=== PATIENT | female | born 1965 | race Caucasian/White ===

== ENCOUNTER 2017-07-13 00:51 | Inpatient (IN) | payer OTHER ==
[~2017-07-13] VITALS: Ht 167.6 cm; Wt 75.4 kg
[2017-07-13] VITALS (18 sets, daily range): BP systolic 110–156; BP diastolic 61–98; PULSE 63–112; RESP 14–21; TEMP 98.4–98.8; O2SAT 96–98
[~2017-07-13 00:51] MED LIST: IBUP400T20 PO
[2017-07-13] MEDS ORDERED: ATENOLOL 25 MG TAB PO ONE (02:30)
--- NOTE | 2017-07-13 02:40 | PD ---
HPI Chief Complaint: Chest Pain Time Seen by Provider: 01:48 Travel History International Travel<30 days: No Contact w/Intl Traveler<30days: No Traveled to known affect area: No History of Present Illness HPI pt comes to the ER b/c she feels her BP is very high and is causing CP with left arm radiation , pt takes atenolol daily, and lithium , Pt did not take anything for this pain and did not measure her BP . but feels it is high. 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 She states the pain started when she was walking and she describes it as a sharp pressure in the retrosternal area. She also had some associated left arm numbness. Had some mild shortness of breath and diaphoresis. No nausea. No provocative or palliative factors that she can identify. Patient has no cardiac history. EKG showed sinus rhythm, ST depression in the lateral rosado. PFSH Past Medical History ADHD: Yes Asthma: Yes Bipolar Disorder: Yes Diminished Hearing: No Hepatitis: Yes (C) Reproductive: Yes (ENDOMETRIOUS) Respiratory: Yes (BRONCHITIS LAST MONTH) ?: Not : 1 Miscarriage: 1 Ovarian Cysts: Yes (R/L) Past Surgical History Abdominal Surgery: Yes (ENDOMETREOSIS X2) Social History Alcohol Use: Yes (OCC) Tobacco Use: Yes (1PPD) Substance Use: No Allergies-Medications (Allergen,Severity, Reaction): Coded Allergies: aspirin (Unverified Allergy, Severe, CAN'T BREATH, 07/13/17) guaifenesin (Unverified Allergy, Severe, STOP BREATHING, 07/13/17) hydrocodone (Unverified Allergy, Severe, STOP BREATHING, 07/13/17) penicillin G (Unverified Allergy, Severe, RASH, 07/13/17) pseudoephedrine (Unverified Allergy, Severe, STOP BREATHING, 07/13/17) sulfamethoxazole (Unverified Allergy, Severe, KIDNEY PROBLEMS, 07/13/17) trimethoprim (Unverified Allergy, Severe, KIDNEY PROBLEMS, 07/13/17) Reported Meds & Prescriptions Reported Meds & Active Scripts Active Motrin (Ibuprofen) 400 Mg Tab 400 Mg PO Q8HPRN FOR PAIN Review of Systems Except as stated in HPI: all other systems reviewed are Neg Cardiovascular: Positive: Chest Pain or Discomfort (left arm numbness) Physical Exam Narrative GENERAL: no acute distress SKIN: Warm and dry. HEAD: Atraumatic. Normocephalic. EYES: Pupils equal and round. No scleral icterus. No injection or drainage. ENT: No nasal bleeding or discharge. Mucous membranes pink and moist. NECK: Trachea midline. No JVD. CARDIOVASCULAR: Regular rate and rhythm. RESPIRATORY: No accessory muscle use. Clear to auscultation. Breath sounds equal bilaterally. GASTROINTESTINAL: Abdomen soft, non-tender, nondistended. Hepatic and splenic margins not palpable. MUSCULOSKELETAL: Extremities without clubbing, cyanosis, or edema. No obvious deformities. NEUROLOGICAL: Awake and alert. No obvious cranial nerve deficits. Motor grossly within normal limits. Five out of 5 muscle strength in the arms and legs. Normal speech. PSYCHIATRIC: Appropriate mood and affect; insight and judgment normal. Data Data Last Documented VS Vital Signs Date Time Temp Pulse Resp B/P (MAP) Pulse Ox O2 Delivery O2 Flow Rate FiO2 07/13/17 07:16 72 14 132/61 (84) 97 Room Air 07/13/17 00:54 98.7 Orders Orders Complete Blood Count With Diff (07/13/17 02:19) Comprehensive Metabolic Panel (07/13/17 02:19) Troponin I (07/13/17 02:19) Lipase (07/13/17 02:19) [place] (Li) (07/13/17 02:19) Atenolol (Tenormin) (07/13/17 02:30) Potassium Chloride (Kcl) (07/13/17 04:00) D5-1/2 Ns + Kcl 40 Meq Inj (D5-1/2 Ns + (07/13/17 04:00) Aspirin Chew (Aspirin Chew) (07/13/17 07:30) Basic Metabolic Panel (Bmp) (07/13/17 07:34) Ckmb (Isoenzyme) Profile (07/13/17 07:34) Complete Blood Count With Diff (07/13/17 07:34) Magnesium (Mg) (07/13/17 07:34) Prothrombin Time / Inr (Pt) (07/13/17 07:34) Act Partial Throm Time (Ptt) (07/13/17 07:34) Troponin I (07/13/17 07:34) Ecg Monitoring (07/13/17 07:34) Bilateral Bp Monitoring (07/13/17 07:34) Iv Access Insert/Monitor (07/13/17 07:34) Oximetry (07/13/17 07:34) Oxygen Administration (07/13/17 07:34) Sodium Chloride 0.9% Flush (Ns Flush) (07/13/17 07:45) Place In Observation (07/13/17 07:34) Activity Bed Rest With Brp (07/13/17 07:34) Vital Signs (Adult) Q4H (07/13/17 07:34) Cardiac Rhythm .As Directed (07/13/17 07:34) Notify Dr: Other .PRN (07/13/17 07:34) Notify Parameters (07/13/17 07:34) Resp Oxygen Nasal Cannula (07/13/17 ) Diet Heart Healthy (07/13/17 Breakfast) Ckmb (Isoenzyme) Profile (07/13/17 10:34) Troponin I (07/13/17 10:34) Electrocardiogram (07/13/17 07:34) ^ Obtain (07/13/17 07:34) Sodium Chloride 0.9% Flush (Ns Flush) (07/13/17 07:45) Acetaminophen (Tylenol) (07/13/17 07:45) Morphine Inj (Morphine Inj) (07/13/17 07:45) Famotidine (Pepcid) (07/13/17 09:00) Pantoprazole (Protonix) (07/13/17 09:00) Manufacturing Cost Estimator / Telemetry SALONI.Q8H (07/13/17 07:34) Electrocardiogram (07/13/17 01:42) Place In Observation (07/13/17 07:54) Activity Bed Rest With Brp (07/13/17 07:54) Vital Signs (Adult) Q4H (07/13/17 07:54) Cardiac Rhythm .As Directed (07/13/17 07:54) Notify Dr: Other .PRN (07/13/17 07:54) Notify Parameters (07/13/17 07:54) Resp Oxygen Nasal Cannula (07/13/17 ) ^ Obtain (07/13/17 07:54) Sodium Chloride 0.9% Flush (Ns Flush) (07/13/17 08:00) Sodium Chloride 0.9% Flush (Ns Flush) (07/13/17 09:00) Manufacturing Cost Estimator / Telemetry SALONI.Q8H (07/13/17 07:54) CKMB (07/13/17 07:50) CKMB% (07/13/17 07:50) CKMB (07/13/17 11:45) CKMB% (07/13/17 11:45) Labs Laboratory Tests Test 07/13/17 02:20 07/13/17 07:50 White Blood Count 9.8 TH/MM3 Red Blood Count 4.97 MIL/MM3 Hemoglobin 15.4 GM/DL Hematocrit 44.5 % Mean Corpuscular Volume 89.6 FL Mean Corpuscular Hemoglobin 31.1 PG Mean Corpuscular Hemoglobin Concent 34.7 % Red Cell Distribution Width 13.6 % Platelet Count 289 TH/MM3 Mean Platelet Volume 8.1 FL Neutrophils (%) (Auto) 77.8 % Lymphocytes (%) (Auto) 14.2 % Monocytes (%) (Auto) 6.9 % Eosinophils (%) (Auto) 0.3 % Basophils (%) (Auto) 0.8 % Neutrophils # (Auto) 7.6 TH/MM3 Lymphocytes # (Auto) 1.4 TH/MM3 Monocytes # (Auto) 0.7 TH/MM3 Eosinophils # (Auto) 0.0 TH/MM3 Basophils # (Auto) 0.1 TH/MM3 CBC Comment DIFF FINAL Differential Comment Blood Urea Nitrogen 9 MG/DL 10 MG/DL Creatinine 0.77 MG/DL 0.66 MG/DL Random Glucose 63 MG/DL 66 MG/DL Total Protein 8.4 GM/DL Albumin 4.2 GM/DL Calcium Level 9.1 MG/DL 8.1 MG/DL Alkaline Phosphatase 85 U/L Aspartate Amino Transf (AST/SGOT) 159 U/L Alanine Aminotransferase (ALT/SGPT) 103 U/L Total Bilirubin 0.9 MG/DL Sodium Level 136 MEQ/L 134 MEQ/L Potassium Level 2.8 MEQ/L 2.9 MEQ/L Chloride Level 94 MEQ/L 95 MEQ/L Carbon Dioxide Level 27.9 MEQ/L 28.2 MEQ/L Anion Gap 14 MEQ/L 11 MEQ/L Estimat Glomerular Filtration Rate 79 ML/MIN 94 ML/MIN Troponin I 0.04 NG/ML 0.24 NG/ML Lipase 138 U/L [place] Level MEQ/L Magnesium Level 1.8 MG/DL Total Creatine Kinase 278 U/L Creatine Kinase MB 5.4 NG/ML Creatine Kinase MB % 1.9 % Triglycerides Level 84 MG/DL Cholesterol Level 191 MG/DL LDL Cholesterol 80 MG/DL HDL Cholesterol 94.0 MG/DL Cholesterol/HDL Ratio 2.03 RATIO Thyroid Stimulating Hormone 3rd Gen 0.445 uIU/ML MDM Medical Decision Making Medical Screen Exam Complete: Yes Emergency Medical Condition: Yes Differential Diagnosis LA vs myocardial ischemia, vs GERD , vs PE vs costochondritis Narrative Course Pt chest pain left arm involved ...needs admit serial Trop and possible stress test first trop 0.04 Diagnosis Primary Impression: Chest pain Scripts Lorazepam (Ativan) 0.5 Mg Tab 0.5 MG PO Q8H Y for ANXIETY AND/OR AGITATION, #10 TAB 0 Refills Prov: Emiliana Mesa MD 07/14/17 Hydrochlorothiazide (Hydrochlorothiazide) 12.5 Mg Cap 12.5 MG PO DAILY for Blood Pressure Management, #30 CAP Prov: Emiliana Mesa MD 07/14/17 Nitroglycerin SL (Nitrostat SL) 0.4 Mg Subl 0.4 MG SL Q5M Y for CHEST PAIN, #30 MG Prov: Emiliana Mesa MD 07/14/17 Isosorbide Mononitrate ER (Isosorbide Mononitrate ER) 30 Mg Mike 30 MG PO DAILY@07 for Blood Pressure Management, #30 TAB Prov: Emiliana Mesa MD 07/14/17 Clopidogrel (Plavix) 75 Mg Tab 75 MG PO DAILY for Blood Clot Prevention, #30 TAB Prov: Emiliana Mesa MD 07/14/17 Metoprolol Tartrate (Metoprolol Tartrate) 25 Mg Tab 12.5 MG PO BID for Blood Pressure Management, #60 TAB Prov: Emiliana Mesa MD 07/14/17 Jeancarlos Elizondo MD Jul 13, 2017 02:40
[2017-07-13 02:47] LABS: AUTOMATED NEUTROPHIL # 7.6 TH/MM3 (1.8-7.7); BASOPHIL # 0.1 TH/MM3 (0-0.2); BASOPHIL % 0.8 % (0.0-2.0); EOSINOPHIL % 0.3 % (0.0-4.0); HEMATOCRIT 44.5 % (35.0-46.0); HEMO FLAGS DIFF FINAL; LYMPH % 14.2 % (9.0-44.0); LYMPHOCYTE # 1.4 TH/MM3 (1.0-4.8); MEAN CELL VOLUME 89.6 FL (80.0-100.0); MEAN CORPUSCULAR HEMOGLOBIN 31.1 PG (27.0-34.0); MEAN CORPUSCULAR HGB CONC 34.7 % (32.0-36.0); MONO % 6.9 % (0.0-8.0); NEUT % 77.8 % (16.0-70.0); PLATELET COUNT 289 TH/MM3 (150-450); RED BLOOD COUNT 4.97 MIL/MM3 (4.00-5.30); RED CELL DISTRIBUTION WIDTH 13.6 % (11.6-17.2); WHITE BLOOD COUNT 9.8 TH/MM3 (4.0-11.0)
[2017-07-13 03:42] LABS: ALKALINE PHOSPHATASE 85 U/L (45-117); ALT (GPT) 103 U/L (10-53); ANION GAP 14 MEQ/L (5-15); AST (GOT) 159 U/L (15-37); BICARBONATE 27.9 MEQ/L (21.0-32.0); BLOOD UREA NITROGEN 9 MG/DL (7-18); CHLORIDE 94 MEQ/L (98-107); GLOMERULAR FILTRATION RATE 79 ML/MIN (>89); SODIUM (NA) 136 MEQ/L (136-145); TOTAL BILIRUBIN ADULT 0.9 MG/DL (0.2-1.0)
[2017-07-13 03:43] LABS: POTASSIUM 2.8 MEQ/L (3.5-5.1)
[2017-07-13] MEDS: D5-1/2 NS + KCL 40 MEQ INJ 1,000 ML IV SCH ×3 (04:00→19:43)
[2017-07-13] MEDS ORDERED: POTASSIUM CHLORIDE 20 MEQ CONTROLLED RELEASE TAB PO ONE (04:00)
[2017-07-13] MEDS ORDERED: ASPIRIN 81 MG CHEW TAB CHEW ONE (07:30)
[2017-07-13] MEDS ORDERED: MORPHINE SULFATE 4 MG/ML INJ IV PUSH PRN (07:45)
[2017-07-13] MEDS ORDERED: SODIUM CHLORIDE 0.9% FLUSH 10 ML FLUSH IV FLUSH PRN ×3 (07:45→11:15)
[2017-07-13] MEDS ORDERED: ACETAMINOPHEN 500 MG CPLT PO PRN (07:45)
[2017-07-13] MEDS ORDERED: SODIUM CHLORIDE 0.9% FLUSH 10 ML FLUSH IVF PRN (07:45)
[2017-07-13 08:36] LABS: BICARBONATE 28.2 MEQ/L (21.0-32.0); MAGNESIUM 1.8 MG/DL (1.5-2.5)
[2017-07-13 08:45] LABS: POTASSIUM 2.9 MEQ/L (3.5-5.1)
[2017-07-13] MEDS ORDERED: FAMOTIDINE 20 MG TAB PO SCH (09:00)
[2017-07-13] MEDS: SODIUM CHLORIDE 0.9% FLUSH 10 ML FLUSH IV FLUSH SCH ×2 (09:06→21:25)
[2017-07-13] MEDS: PANTOPRAZOLE SOD 40 MG DELAYED RELEASE TAB PO SCH (09:06)
[2017-07-13 09:12] LABS: CKMB 5.4 NG/ML (0.5-3.6)
[2017-07-13] MEDS ORDERED: POTASSIUM CHLORIDE 10 MEQ CONTROLLED RELEASE TAB PO ONE (11:15)
[2017-07-13] MEDS ORDERED: NITROGLYCERIN 0.4 MG SL 25 TABS/BTL SL PRN (11:15)
[2017-07-13] MEDS ORDERED: MORPHINE SULFATE 2 MG/ML INJ IV PUSH PRN (11:15)
[2017-07-13 12:03] LABS: AUTOMATED NEUTROPHIL # 3.1 TH/MM3 (1.8-7.7); BASOPHIL # 0.1 TH/MM3 (0-0.2); BASOPHIL % 1.3 % (0.0-2.0); EOSINOPHIL # 0.1 TH/MM3 (0-0.4); EOSINOPHIL % 1.4 % (0.0-4.0); HEMATOCRIT 38.4 % (35.0-46.0); HEMO FLAGS DIFF FINAL; LYMPH % 28.7 % (9.0-44.0); LYMPHOCYTE # 1.5 TH/MM3 (1.0-4.8); MEAN CELL VOLUME 88.8 FL (80.0-100.0); MEAN CORPUSCULAR HEMOGLOBIN 31.1 PG (27.0-34.0); MEAN CORPUSCULAR HGB CONC 35.1 % (32.0-36.0); MONO % 10.9 % (0.0-8.0); NEUT % 57.7 % (16.0-70.0); PLATELET COUNT 261 TH/MM3 (150-450); RED BLOOD COUNT 4.33 MIL/MM3 (4.00-5.30); RED CELL DISTRIBUTION WIDTH 13.9 % (11.6-17.2); WHITE BLOOD COUNT 5.3 TH/MM3 (4.0-11.0)
[2017-07-13 12:14] LABS: APTT (PATIENT) 25.3 SEC (24.3-30.1); PROTHROMBIN TIME - PATIENT 10.2 SEC (9.8-11.6)
[2017-07-13] MEDS ORDERED: PILL SPLITTER OTHER PRN (12:30)
[2017-07-13 12:42] LABS: CKMB 4.6 NG/ML (0.5-3.6)
--- NOTE | 2017-07-13 13:48 | HHI.HP ---
[facility]Staff Admission Diagnosis chest pain Diagnoses: (1) NSTEMI (non-ST elevated myocardial infarction) Travel History International Travel<30 Days: No Contact w/Intl Traveler <30 Da: No Traveled to Known Affected Are: No History of Present Illness This is a 51-year-old female with history of detention tobacco use, hepatitis C virus, alcohol withdrawal seizures who presented to the ER early this morning complaining of retrosternal chest pain. She states the pain started when she was walking and she describes it as a sharp pressure in the retrosternal area. She also had some associated left arm numbness. Had some mild shortness of breath and diaphoresis. No nausea. No provocative or palliative factors that she can identify. Patient has no cardiac history. EKG showed sinus rhythm, ST depression in the lateral rosado. Patient was initially placed in the chest pain Center however her troponin came back elevated and so I was called to admit the patient. Patient is here on vacation from [place]. She does endorse that she's been drinking rather heavily over the past 2 weeks. Denies any tremors. She does have a history of alcohol withdrawal seizures. 10 point review systems otherwise negative. Past Family Social History Past Medical History Migraines COPD/bronchitis Alcoholism Tobaccoism History of alcohol withdrawal seizures Osteoporosis/vitamin D deficiency Hepatitis C virus Bipolar disorder - she is supposed to be on lithium but is not gotten her prescription filled recently Past Surgical History No surgeries Reported Medications Allergies Coded Allergies Type Severity Reaction Last Updated Verified aspirin Allergy Severe CAN'T BREATH 07/13/17 No guaifenesin Allergy Severe STOP BREATHING 07/13/17 No hydrocodone Allergy Severe STOP BREATHING 07/13/17 No penicillin G Allergy Severe RASH 07/13/17 No pseudoephedrine Allergy Severe STOP BREATHING 07/13/17 No sulfamethoxazole Allergy Severe KIDNEY PROBLEMS 07/13/17 No trimethoprim Allergy Severe KIDNEY PROBLEMS 07/13/17 No Active Scripts Medications Dose Route/Sig Max Daily Dose Days Date Category Dose Instructions Motrin (Ibuprofen) 400 Mg Tab 400 Mg PO Q8HPRN 02/11/06 Rx FOR PAIN Allergies: Coded Allergies: aspirin (Unverified Allergy, Severe, CAN'T BREATH, 07/13/17) guaifenesin (Unverified Allergy, Severe, STOP BREATHING, 07/13/17) hydrocodone (Unverified Allergy, Severe, STOP BREATHING, 07/13/17) penicillin G (Unverified Allergy, Severe, RASH, 07/13/17) pseudoephedrine (Unverified Allergy, Severe, STOP BREATHING, 07/13/17) sulfamethoxazole (Unverified Allergy, Severe, KIDNEY PROBLEMS, 07/13/17) trimethoprim (Unverified Allergy, Severe, KIDNEY PROBLEMS, 07/13/17) Family History Positive for coronary artery disease and one maternal aunt Social History As per history of present illness Physical Exam Vital Signs Vital Signs Date Time Temp Pulse Resp B/P (MAP) Pulse Ox O2 Delivery O2 Flow Rate FiO2 07/13/17 11:38 79 21 156/96 (116) 97 Room Air 07/13/17 11:37 (84) Room Air 07/13/17 11:37 98 Room Air 07/13/17 07:16 72 14 132/61 (84) 97 Room Air 07/13/17 05:16 71 16 110/69 (83) 96 Room Air 07/13/17 03:19 81 07/13/17 00:54 98.7 112 16 138/98 (111) 98 Room Air Physical Exam GENERAL: This is a well-nourished, well-developed patient, in no apparent distress. Appears somewhat weathered. SKIN: No rashes, ecchymoses or lesions. Cool and dry. HEAD: Atraumatic. Normocephalic. EYES: Pupils equal round and reactive. Extraocular motions intact. No scleral icterus. No injection or drainage. NECK: Trachea midline. No JVD or lymphadenopathy. Supple, nontender, no meningeal signs. CARDIOVASCULAR: Regular rate and rhythm without murmurs, gallops, or rubs. RESPIRATORY: Clear to auscultation. Breath sounds equal bilaterally. No wheezes , rales, or rhonchi. GASTROINTESTINAL: Abdomen soft, non-tender, nondistended. No hepato-splenomegaly , or palpable masses. No guarding. MUSCULOSKELETAL: No pedal edema. NEUROLOGICAL: Awake and alert. Motor and sensory grossly within normal limits. Normal speech. Laboratory Laboratory Tests Test 12/7/17 02:20 07/13/17 07:50 07/13/17 11:45 White Blood Count 9.8 5.3 Red Blood Count 4.97 4.33 Hemoglobin 15.4 13.5 Hematocrit 44.5 38.4 Mean Corpuscular Volume 89.6 88.8 Mean Corpuscular Hemoglobin 31.1 31.1 Mean Corpuscular Hemoglobin Concent 34.7 35.1 Red Cell Distribution Width 13.6 13.9 Platelet Count 289 261 Mean Platelet Volume 8.1 7.6 Neutrophils (%) (Auto) 77.8 57.7 Lymphocytes (%) (Auto) 14.2 28.7 Monocytes (%) (Auto) 6.9 10.9 Eosinophils (%) (Auto) 0.3 1.4 Basophils (%) (Auto) 0.8 1.3 Neutrophils # (Auto) 7.6 3.1 Lymphocytes # (Auto) 1.4 1.5 Monocytes # (Auto) 0.7 0.6 Eosinophils # (Auto) 0.0 0.1 Basophils # (Auto) 0.1 0.1 CBC Comment DIFF FINAL DIFF FINAL Differential Comment Blood Urea Nitrogen 9 10 Creatinine 0.77 0.66 Random Glucose 63 66 Total Protein 8.4 Albumin 4.2 Calcium Level 9.1 8.1 Alkaline Phosphatase 85 Aspartate Amino Transf (AST/SGOT) 159 Alanine Aminotransferase (ALT/SGPT) 103 Total Bilirubin 0.9 Sodium Level 136 134 Potassium Level 2.8 2.9 Chloride Level 94 95 Carbon Dioxide Level 27.9 28.2 Anion Gap 14 11 Estimat Glomerular Filtration Rate 79 94 Troponin I 0.04 0.24 0.19 Lipase 138 [place] Level Magnesium Level 1.8 Total Creatine Kinase 278 273 Creatine Kinase MB 5.4 4.6 Creatine Kinase MB % 1.9 1.7 Prothrombin Time 10.2 Prothromb Time International Ratio 1.0 Activated Partial Thromboplast Time 25.3 Result Diagram: 07/13/17 1145 07/13/17 0750 Caprini VTE Risk Assessment Caprini VTE Risk Assessment: No/Low Risk (score <= 1) Caprini Risk Assessment Model Point Value = 1 Point Value = 2 Point Value = 3 Point Value = 5 Age 41-60 Minor surgery BMI > 25 kg/m2 Swollen legs Varicose veins or History of unexplained or recurrent spontaneous Oral contraceptives or hormone replacement Sepsis (< 1 month) Serious lung disease, including pneumonia (< 1 month) Abnormal pulmonary function Acute myocardial infarction Congestive heart failure (< 1 month) History of inflammatory bowel disease Medical patient at bed rest Age 61-74 Arthroscopic surgery Major open surgery (> 45 min) Laparoscopic surgery (> 45 min) Malignancy Confined to bed (> 72 hours) Immobilizing plaster cast Central venous access Age >= 75 History of VTE Family history of VTE Factor V Leiden Prothrombin [id number] Lupus anticoagulant Anticardiolipin antibodies Elevated serum homocysteine Heparin-induced thrombocytopenia Other congenital or acquired thrombophilia Stroke (< 1 month) Elective arthroplasty Hip, pelvis, or leg fracture Acute spinal cord injury (< 1 month) Prophylaxis Regimen Total Risk Factor Score Risk Level Prophylaxis Regimen 0-1 Low Early ambulation 2 Moderate Order ONE of the following: *Sequential Compression Device (SCD) *Heparin 5000 units SQ BID 3-4 Higher Order ONE of the following medications: *Heparin 5000 units SQ TID *Enoxaparin/Lovenox 40 mg SQ daily (WT < 150 kg, CrCl > 30 mL/min) *Enoxaparin/Lovenox 30 mg SQ daily (WT < 150 kg, CrCl > 10-29 mL/min) *Enoxaparin/Lovenox 30 mg SQ BID (WT < 150 kg, CrCl > 30 mL/min) AND/OR *Sequential Compression Device (SCD) 5 or more Highest Order ONE of the following medications: *Heparin 5000 units SQ TID (Preferred with Epidurals) *Enoxaparin/Lovenox 40 mg SQ daily (WT < 150 kg, CrCl > 30 mL/min) *Enoxaparin/Lovenox 30 mg SQ daily (WT < 150 kg, CrCl > 10-29 mL/min) *Enoxaparin/Lovenox 30 mg SQ BID (WT < 150 kg, CrCl > 30 mL/min) AND *Sequential Compression Device (SCD) Assessment and Plan Assessment and Plan NSTEMI - presented with chest pain. Troponin 0.24-0.19. Patient has aspirin allergy. Start patient on Plavix, statin, check lipid profile. Started on beta estrella. Cardiology consulted. Patient is thinking about whether or not she wants a heart catheter or not. Patient was counseled on tobacco cessation. Alcoholism. History of alcohol withdrawal seizures. We'll place patient on rally pack. Elevated LFTs. Likely due to alcohol and she also has history of hepatitis C virus. Hypokalemia. We'll replete and repeat BMP in the morning. DVT prophylaxis with SCDs. Sarah Owens MD Jul 13, 2017 13:48
[2017-07-13] MEDS ORDERED: LORazepam 2 MG/ML VIAL IV PUSH PRN ×3 (14:00)
[2017-07-13] MEDS ORDERED: FLUMAZENIL 0.5 MG/5 ML VIAL IV PUSH PRN (14:00)
[2017-07-13] MEDS ORDERED: LORazepam 1 MG TAB PO PRN (14:00)
[2017-07-13] MEDS ORDERED: LORazepam 2 MG TAB PO PRN (14:00)
--- NOTE | 2017-07-13 14:10 | MB ---
cc: NAVEEN LUNDY DATE OF CONSULTATION: 07/13/2017 1965 REASON FOR CONSULTATION Chest pain. HISTORY OF PRESENT ILLNESS 51-year-old female with past medical history significant for alcohol abuse, hepatitis C, asthma, seizures, endometriosis, hypertension, smoker, that presented to the hospital with complaints of chest pain and left hand numbness. She reports chest discomfort at rest that comes and goes, associated again with left arm pain. She denies palpitations, shortness of breath, syncope, nausea, vomiting, diarrhea or abdominal pain or leg edema. Cardiology has been consulted for further management and evaluation. She has been found to have minimally elevated troponins of 0.04, 0.24 and 0.19. EKG shows normal sinus rhythm, unremarkable for age. REVIEW OF SYSTEMS Review of systems negative except for what is mentioned in the HPI. PAST MEDICAL HISTORY 1. Alcohol abuse. 2. Hepatitis C. 3. Asthma. 4. Seizures. 5. Endometriosis. 6. Smoker. PAST SURGICAL HISTORY Endometriosis surgery. SOCIAL HISTORY Alcohol abuse, tobacco abuse. No illicit drug use. ALLERGIES ASPIRIN, GUAIFENESIN, HYDROCODONE, PENICILLIN G, PSEUDOEPHEDRINE, SULFAMETHOXAZOLE, TRIMETHOPRIM. FAMILY HISTORY Noncontributory. MEDICATION Home medications: Atenolol and lithium. PHYSICAL EXAMINATION VITAL SIGNS: Temperature 98, respiratory rate 16, heart rate 79, blood pressure 156/96, O2 sat 97% on room air. GENERAL: Alert, awake and oriented x3, in no acute distress. NECK: No JVD, no carotid bruits. HEART: Regular rate and rhythm. No murmurs, rubs or gallops. LUNGS: Clear to auscultation bilaterally. No wheezing. No rhonchi or rales. ABDOMEN: Benign, soft, nontender, nondistended with positive bowel sounds. EXTREMITIES: No cyanosis or edema and pulses throughout. DATA CBC hemoglobin 13, hematocrit 38, platelet count 261, INR 1. Chemistries sodium 134, potassium 2.9, chloride 95, BUN 10, creatinine 0.66, AST 159, ALT 103, troponin 0.04, 0.24 and 0.19. EKG Shows sinus rhythm. No acute ST changes. ASSESSMENT/PLAN 51-year-old female with cardiac risk factors that include smoking, hypertension and age, that presents to the emergency department with complaints of chest pressure with numbness to the left arm. EKG shows no significant acute ST changes and troponins minimally elevated with a value of 0.04. 0.24 and 0.19. The patient remains afebrile, hemodynamically stable and currently chest pain free. She reports that she has not been from the area and coming from [place]. She follows with a heavy equipment engine mechanic in [place] which prescribes to her, her blood pressure medications. Given presentation and risk factors concerning for ACS for which invasive cardiology workup will be recommended. However, the patient currently declines to have any cardiac workup. She reports she wants to wait until getting to [place] and see her heavy equipment engine mechanic. Risks and benefits of left heart cath/PCI have been thoroughly explained to the patient and the patient again refuses. Furthermore, pathophysiology treatment, prognosis of ACS have been explained and the patient declines to receive any invasive cardiac management. Thus at this time the recommendation will be to treat medically. The patient does have noted ALLERGY TO ASPIRIN. RECOMMENDATIONS Blood pressure control with Lopressor and optimize as tolerated by heart rate and blood pressure. Start HCTZ 25 mg p.o. daily. Continue and start Imdur 30 mg p.o. daily. Given increase in LFTs we are going to hold statins, get a 2-D echo as well as a chest x-ray, continue Plavix. Thank you for the opportunity to take part in the care of this patient. MD FOREST Moser/TLL /1:08 PM /1:34 PM LEWIS
[2017-07-13] MEDS ORDERED: LEVOTHYROXINE SODIUM 25 MCG TAB PO SCH (15:15)
--- NOTE | 2017-07-13 16:17 | ECHRPT ---
Indication: CONCLUSIONS Normal left ventricular size. Structurally normal mitral valve Mild mitral valve regurgitation. No aortic valve regurgitation. No aortic valve stenosis. There is mild tricuspid valve regurgitation. The estimated pulmonary arterial pressure is 41.6 mmHg. BP: / HR: Rhythm: MEASUREMENTS (Male / Female) Normal Values Technical Quality:Excellent 2D ECHO LV Diastolic Diameter PLAX 3.8 cm 4.2 - 5.9 / 3.9 - 5.3 cm LV Systolic Diameter PLAX 2.7 cm IVS Diastolic Thickness 1.2 cm 0.6 - 1.0 / 0.6 - 0.9 cm LVPW Diastolic Thickness 1.1 cm 0.6 - 1.0 / 0.6 - 0.9 cm LV Relative Wall Thickness 0.6 RV Internal Dim ED PLAX 2.6 cm M-MODE Aortic Root Diameter MM 2.7 cm LA Systolic Diameter MM 3.1 cm LA Ao Ratio MM 1.1 AV Cusp Separation MM 1.6 cm DOPPLER Mitral E Point Velocity 70.1 cm/s Mitral A Point Velocity 84.4 cm/s Mitral E to A Ratio 0.8 LV E' Lateral Velocity 8.4 cm/s Mitral E to LV E' Lateral Ratio 8.4 LV E' Septal Velocity 7.0 cm/s Mitral E to LV E' Septal Ratio 10.0 TR Peak Velocity 281.0 cm/s TR Peak Gradient 31.6 mmHg Right Atrial Pressure 10.0 mmHg Pulmonary Artery Systolic Pressu 41.6 mmHg Right Ventricular Systolic Press 41.6 mmHg FINDINGS LEFT VENTRICLE The left ventricular systolic function is normal with an estimated ejection fraction in the range of 60-65%. Normal left ventricular size. RIGHT VENTRICLE Normal right ventricular size and systolic function. LEFT ATRIUM The left atrial size is normal. RIGHT ATRIUM The right atrial size is normal. ATRIAL SEPTUM Normal atrial septal thickness without atrial level shunting by limited color doppler interrogation. AORTA The aortic root and proximal ascending aorta are normal in size on limited imaging. MITRAL VALVE Structurally normal mitral valve Mild mitral valve regurgitation. AORTIC VALVE Trileaflet aortic valve. No aortic valve regurgitation. No aortic valve stenosis. TRICUSPID VALVE Structurally normal tricuspid valve. There is mild tricuspid valve regurgitation. The estimated pulmonary arterial pressure is 41.6 mmHg. PULMONARY VALVE No pulmonary valve regurgitation or stenosis. VESSELS The inferior vena cava is normal in size. PERICARDIUM No pericardial effusion. Geovany Kemp MD (Electronically Signed) Final Date:13 July 2017 16:17
--- NOTE | 2017-07-13 17:04 | EKG ---
Date Performed: 07/13/2017 Time Performed: 07:56:14 PTAGE: 51 years EKG: Sinus rhythm PROLONGED QT INTERVAL ABNORMAL ECG PREVIOUS TRACING : 07/13/2017 01.42 DOCTOR: Sid Donahue Interpretating Date/Time 07/13/2017 17:03:01
--- NOTE | 2017-07-13 17:04 | EKG ---
Date Performed: 07/13/2017 Time Performed: 01:42:42 PTAGE: 51 years EKG: Sinus rhythm PROLONGED QT INTERVAL ABNORMAL ECG NO PREVIOUS TRACING DOCTOR: Sid Donahue Interpretating Date/Time 07/13/2017 17:02:41
[2017-07-13] MEDS ORDERED: SODIUM CHLORIDE 0.9% FLUSH 10 ML FLUSH IV FLUSH SCH (21:00)
[2017-07-13] MEDS: METOPROLOL TARTRATE 25 MG TAB PO SCH (21:23)
[2017-07-14] VITALS (15 sets, daily range): BP systolic 124–153; BP diastolic 88–99; PULSE 63–85; RESP 16–18; TEMP 97.7–98.6; O2SAT 96–98
[2017-07-14] MEDS: LORazepam 2 MG/ML VIAL IV PUSH PRN ×2 (00:13→04:17)
[2017-07-14] MEDS: D5-1/2 NS + KCL 40 MEQ INJ 1,000 ML IV SCH ×2 (04:00→12:00)
[2017-07-14] MEDS ORDERED: ISOSORBIDE MONONITRATE 30 MG TAB PO SCH (07:00)
[2017-07-14 07:50] LABS: BICARBONATE 27.3 MEQ/L (21.0-32.0); POTASSIUM 3.5 MEQ/L (3.5-5.1)
[2017-07-14] MEDS: METOPROLOL TARTRATE 25 MG TAB PO SCH (08:18)
[2017-07-14] MEDS: PANTOPRAZOLE SOD 40 MG DELAYED RELEASE TAB PO SCH (08:18)
[2017-07-14] MEDS: SODIUM CHLORIDE 0.9% FLUSH 10 ML FLUSH IV FLUSH SCH (08:18)
[2017-07-14] MEDS ORDERED: CLOPIDOGREL 75 MG TAB PO SCH (09:00)
[2017-07-14] MEDS ORDERED: HYDROCHLOROTHIAZIDE 12.5 MG CAP PO SCH (09:00)
[2017-07-14] MEDS ORDERED: PNEUMOCOCCAL POLYVALENT INJ 25 MCG/0.5 ML SYR IM ONE (10:00)
[2017-07-14] MEDS ORDERED: INFLUENZA VIRUS VACCINE (QUADRIVALENT) 0.5 ML SYR IM ONE (10:00)
--- NOTE | 2017-07-14 11:05 | HHI.PR ---
Subjective Remarks The patient is in bed appears in nad at this time. She is not having any chest pain at this time. Patien tis refusing cardiac cath. No fever or chills. No n/v /d/c. Objective Vitals Vital Signs Date Time Temp Pulse Resp B/P (MAP) Pulse Ox O2 Delivery O2 Flow Rate FiO2 07/14/17 10:01 70 07/14/17 09:00 64 07/14/17 08:15 98.2 80 18 124/89 (101) 96 07/14/17 08:00 68 07/14/17 07:01 85 07/14/17 06:00 68 07/14/17 05:00 64 07/14/17 04:00 70 07/14/17 04:00 97.7 77 16 144/92 (109) 97 07/14/17 03:00 74 07/14/17 02:00 72 07/14/17 01:00 72 07/14/17 00:00 76 07/14/17 00:00 97.9 69 16 153/99 (117) 97 07/13/17 23:00 68 07/13/17 22:00 68 07/13/17 21:00 64 07/13/17 20:55 98 07/13/17 20:00 98.4 68 16 154/98 (116) 97 07/13/17 20:00 63 07/13/17 19:00 68 07/13/17 18:13 71 07/13/17 17:47 98.8 79 16 139/93 (108) 97 07/13/17 17:41 83 07/13/17 16:00 78 07/13/17 15:00 75 07/13/17 14:00 76 07/13/17 13:37 98.7 78 16 138/95 (109) 97 07/13/17 11:38 79 21 156/96 (116) 97 Room Air 07/13/17 11:37 (84) Room Air 07/13/17 11:37 98 Room Air I/O 07/13/17 07/13/17 07/13/17 07/14/17 07/14/17 07/14/17 07:00 15:00 23:00 07:00 15:00 23:00 Intake Total 1987 ml 240 ml Output Total 400 ml 400 ml Balance 1587 ml -160 ml Intake Oral 960 ml 240 ml IV Total 1027 ml Output Urine Total 400 ml 400 ml Result Diagram: 07/13/17 1145 07/14/17 0624 Objective Remarks GENERAL: This is a well-nourished, well-developed patient, in no apparent distress. Appears somewhat weathered. CARDIOVASCULAR: Regular rate and rhythm without murmurs, gallops, or rubs. RESPIRATORY: Clear to auscultation. Breath sounds equal bilaterally. No wheezes , rales, or rhonchi. GASTROINTESTINAL: Abdomen soft, non-tender, nondistended. No hepato-splenomegaly , or palpable masses. No guarding. MUSCULOSKELETAL: No pedal edema. NEUROLOGICAL: Awake and alert. Motor and sensory grossly within normal limits. Normal speech. A/P Problem List: (1) NSTEMI (non-ST elevated myocardial infarction) ICD Code: I21.4 - Non-ST elevation (NSTEMI) myocardial infarction Assessment and Plan NSTEMI - presented with chest pain. Troponin 0.24-0.19. Patient has aspirin allergy. Start patient on Plavix, statin, check lipid profile. Started on beta estrella. Cardiology consulted. Patient was counseled on tobacco cessation. THE PATIENT IS REFUSING CARDIAC CATH. CONTINUE MEDICAL MANAGEMENT Alcoholism. History of alcohol withdrawal seizures. We'll place patient on rally pack. Elevated LFTs. Likely due to alcohol and she also has history of hepatitis C virus. Hypokalemia. We'll replete and repeat BMP in the morning. DVT prophylaxis with SCDs. DC plan: PATIENT IS REFUSING CARDIAC CATH. CONTINUE MEDICAL MANAGEMENT TO FOLLWO [facility] AND WITH CARDIOLOGY CASE MANAGEMENT CONSULTED FOR DC PLAN Discharge Planning DC home in stable condition to follow up as OP with PCP and consultants ' Diet healthy heart Meds per med reconciliations Activity ad tom as tolerated Emiliana Mesa MD Jul 14, 2017 11:05
[2017-07-14] MEDS ORDERED: ISOS30TA3 PO (12:27)
[2017-07-14] MEDS ORDERED: PLAV75TA29 PO (12:27)
[2017-07-14] MEDS ORDERED: HYDR12.57 PO (12:27)
[2017-07-14] MEDS ORDERED: NITR0.4S SL (12:27)
[2017-07-14] MEDS ORDERED: LORA-392 PO (12:27)
[2017-07-14] MEDS ORDERED: METO25TA3 PO (12:27)
--- NOTE | 2017-07-14 12:27 | HHI.DCPOC ---
Discharge Care Plan Goals to Promote Your Health * To prevent worsening of your condition and complications * To maintain your health at the optimal level Directions to Meet Your Goals Take your medications as prescribed Follow your dietary instruction Follow activity as directed Keep your appointments as scheduled Take your immunizations and boosters as scheduled If your symptoms worsen call your PCP, if no PCP go to Urgent Care Center or Emergency Room Smoking is Dangerous to Your Health. Avoid second hand smoke Call the 24-hour hour crisis hotline for domestic abuse at Emiliana Mesa MD Jul 14, 2017 12:27
== END 2017-07-14 15:55 | disposition home or self-care (01) | DRG 282 ==
LOC: NEPC 00:51 → NEDA 09:18 → OBSVTOIN 11:20 → HCIS 13:21
PROVIDERS: ADMIT Hospitalist; ATTEND Hospitalist
DX: I21.4 Non-ST elevation (NSTEMI) myocardial infarction (principal); I10 Essential (primary) hypertension; B19.20 Unspecified viral hepatitis C without hepatic coma; F10.20 Alcohol dependence, uncomplicated; E87.6 Hypokalemia; F31.9 Bipolar disorder, unspecified; J44.9 Chronic obstructive pulmonary disease, unspecified; M81.0 Age-related osteoporosis without current pathological fracture; F17.210 Nicotine dependence, cigarettes, uncomplicated; Z88.6 Allergy status to analgesic agent; Z23 Encounter for immunization
CPT/HCPCS: 76937; 80048; 80053; 80061; 80178; 82550; 82552; 83690; 83735; 84443; 84484; 85025; 85610; 85730; 90686; 90732; 93005; 93306; J2060; J2270; J3480; Q2038